=== PATIENT | male | born 1955 | race Caucasian/White ===

== ENCOUNTER 2018-08-17 12:34 | Emergency (ER) | payer BC, OTHER ==
[~2018-08-17] VITALS: Ht 188 cm; Wt 117.9 kg
--- NOTE | 2018-08-17 14:52 | ED Lower Extremity ---
General Chief Complaint: Lower Extremity Stated Complaint: LEFT LEG PAIN Nursing Triage Note: pt arrived in ED POV with with c/o left leg/hip pain. a week ago pt fell trying to get in truck but didn't start having this pain for a couple days. Pt states that he has been to [facility] ED et seen his PCP but nothing has been done. PT states he can not walk on leg Nursing Sepsis Screen: No Definite Risk Source: patient, spouse Exam Limitations: no limitations History of Present Illness Date Seen by Provider: Aug 17, 2018 Time Seen by Provider: 14:37 Initial Comments Patient presents to ER by private conveyance with chief complaint that about 10 days ago he was getting out of his truck and fell down striking his right hip against the step board. About 3 or 4 days later he started expressing some pain in his right hip laterally radiating down to the level of the knee. He has no history of chronic back pain and some sciatica. He went to Dr. Parra any put him on a steroid shot and gave him some Percocet. 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 He has been using topical creams. A day later it was not feeling any better so he went to the ER [place] the toe and he might of had a blood clot so he went to the [facility] get an ultrasound done in the [facility] ER doctor did not think that he had a blood clot but told him he is having muscle skeletal pain and sciatica gave him some stronger Percocet 10 mg and put him on some prednisone and told him to follow-up Friday if it's not getting better. His called the litigation legal secretary or nurse for Dr. 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 The patient had an x-ray of his back lumbar spine and hip and knee and there were no fracture seen at [place]. Allergies and Home Medications Allergies Coded Allergies: aspirin (Verified Allergy, Unknown, angioedema, 08/17/18) Angioedema Patient Home Medication List Home Medication List Reviewed: Yes Review of Systems Constitutional: No chills, No fever EENTM: No ear discharge, No ear pain Respiratory: No cough, No phlegm Cardiovascular: No chest pain, No palpitations Gastrointestinal: No abdominal pain, No constipation, No diarrhea, No nausea Genitourinary: No discharge, No dysuria Musculoskeletal: see HPI, back pain, joint pain Past Loorjcj-Niibzt-Aijvbn Hx Patient Social History Alcohol Use: Denies Use Recreational Drug Use: No Recent Foreign Travel: No Contact w/Someone Who Travel: No Recent Infectious Disease Expo: No Physical Exam Vital Signs Vital Signs - First Documented 08/17/18 12:34 Temp 98.4 Pulse 55 Resp 18 B/P (MAP) 141/89 (106) Pulse Ox 95 O2 Delivery Room Air Capillary Refill : Less Than 3 Seconds Height, Weight, BMI Height: 6'2.00" Weight: 260lbs. oz. 117.724208ko; BMI Method:Stated General Appearance: WD/WN, mild distress HEENT: PERRL/EOMI, pharynx normal Neck: non-tender, full range of motion, supple, normal inspection Cardiovascular: normal peripheral pulses, regular rate, rhythm, no edema Respiratory: lungs clear, no respiratory distress, no accessory muscle use Back: normal inspection, no vertebral tenderness (midline), other (no tenderness over the bilateral L5-S1 facet joints) Hips: right hip non-tender, right hip normal inspection; bilateral hip normal range of motion; right hip no evidence of injury; left hip bone tenderness ( tenderness over the greater trochanter), left hip pain, left hip soft tissue tenderness (down the leg to above the knee laterally) Knees: bilateral knee non-tender, bilateral knee normal inspection, bilateral knee normal range of motion, bilateral knee no evidence of injury Neurologic/Tendon: normal sensation, normal motor functions, normal tendon functions, responds to pain, no evidence tendon injury Neurologic/Psychiatric: no motor/sensory deficits, alert, normal mood/affect, oriented x 3 Skin: normal color, warm/dry Progress/Results/Core Measures Results/Orders My Orders Orders - ORTIZ ARGUETA Fentanyl Injection (Sublimaze Injection (08/17/18 16:50) Fentanyl Injection (Sublimaze Injection (08/17/18 17:00) Medications Given in ED Current Medications Medications Dose Ordered Sig/Robb Route Start Time Stop Time Status Last Admin Dose Admin Fentanyl Citrate 75 mcg ONCE ONCE IM 08/17/18 17:00 08/17/18 17:01 DC 08/17/18 16:54 75 MCG Vital Signs/I&O 08/17/18 12:34 Temp 98.4 Pulse 55 Resp 18 B/P (MAP) 141/89 (106) Pulse Ox 95 O2 Delivery Room Air Blood Pressure Mean: 106 Progress Progress Note #1: Time: 17:51 Progress Note The patient has no red flag signs of in, some bowel, urinary hesitancy, saddle anesthesia, numbness weakness. He has full range of motion despite some pain in that left hip. His pain seems to be over the left ureter trochanter more consistent with a bursitis probably traumatic from his fall. Since she can't tolerate NSAIDs his best bet is going to be topical creams, Tylenol, opiates and continue the steroids. His insist that we talk to the surgeon so we will call orthopedic surgery and give him some follow-up. He also recommended that he talk to his primary care doctor about physical therapy. Reviewed the x-ray report from the [facility] showing that he had no acute fractures or subluxation in his lumbar spine. Fentanyl 75 g IM given. Progress Note #2: Time: 18:08 Progress Note The patient says that his pain is greatly improved with the 75 g of fentanyl. We've offered him another shot and he declined. We will get him set up to call for outpatient follow-up with Dr. Dougherty tomorrow. We'll send him home some Percocets. He already has diclofenac gel. Consults : Consulting Physician: LANRE DOUGHERTY MD Consults Notes Discussed case with Dr. DOUGHERTY and he agrees with outpatient follow-up. Departure Impression Primary Impression: Bursitis Qualified Codes: M70.62 - Trochanteric bursitis, left hip Additional Impressions: Lumbago with sciatica, left side Qualified Codes: M54.42 - Lumbago with sciatica, left side Fall Qualified Codes: W19.XXXS - Unspecified fall, sequela Disposition: 01 HOME, SELF-CARE Condition: Stable Departure-Patient Inst. Decision time for Depature: 18:08 Referrals: LANRE DOUGHERTY MD Patient Instructions: Bursitis (DC) Add. Discharge Instructions: Use heat, back brace, muscle rubs, diclofenac gel, Tylenol less than 3000 mg a day, Percocet 1-2 tablets every 6 hours as needed for pain. Every day to take Percocet you should also take at least one dose of MiraLAX. You can also use the Dulcolax. Drink plenty of fluids. Stretch your back out per the exercises and tomorrow call Dr. DOUGHERTY, orthopedic surgery and request an appointment. If you begin to have numbness, weakness, inability to control your bowels or bladder then you should return to the nearest ER. Or All discharge instructions reviewed with patient and/or family. Voiced understanding. Scripts Oxycodone HCl/Acetaminophen (Percocet 5-325 mg Tablet) 1 Each Tablet 1-2 EACH PO Q6H PRN for PAIN-MODERATE MDD 6 for 7 Days, #20 TAB 0 Refills Prov: ORTIZ ARGUETA 08/17/18 ORTIZ ARGUETA Aug 17, 2018 14:52
--- NOTE | 2018-08-17 15:45 | NUR ---
report given to Yen BURCIAGA
[2018-08-17] MEDS ORDERED: fentaNYL INJECTION 100 MCG/2 ML AMP ONE (16:50)
[2018-08-17] MEDS ORDERED: fentaNYL INJECTION 100 MCG/2 ML AMP IM ONE (17:00)
[2018-08-17] MEDS ORDERED: OXYC1TAB87 PO (18:10)
[2018-08-17 18:15] VITALS: BP 141/89
== END 2018-08-17 18:16 | disposition home or self-care (01) ==
LOC: ER 12:36
DX: M70.62 Trochanteric bursitis, left hip (principal); M54.42 Lumbago with sciatica, left side; Z88.6 Allergy status to analgesic agent; V58.4XXA Person boarding or alighting a pick-up truck or van injured in noncollision transport accident, initial encounter; W22.09XA Striking against other stationary object, initial encounter

== ENCOUNTER → 2018-12-10 | Outpatient (CLI) | payer BC, MEDICARE ==
[~2018-12-10] MED LIST: OXYC1TAB87 PO
[2018-12-10 15:34] LABS: HEMATOCRIT 48 % (40-54); LYMPHOCYTES % (AUTO) 11 % (12-44); MEAN CORPUSCULAR HEMOGLOBIN 27 PG (25-34); MEAN CORPUSCULAR HGB CONC 32 G/DL (32-36); MEAN CORPUSCULAR VOLUME 86 FL (80-99); NEUTROPHILS % (AUTO) 58 % (42-75); PLATELET COUNT 92 10^3/uL (130-400); RED CELL DISTRIBUTION WIDTH 19.2 % (10.0-14.5); WHITE BLOOD COUNT 34.2 10^3/uL (4.3-11.0)
[2018-12-10 15:35] LABS: BASOPHILS # (AUTO) 1.4 10^3/uL (0.0-0.1); BASOPHILS % (AUTO) 4 % (0-10); EOSINOPHILS # (AUTO) 0.7 10^3/uL (0.0-0.3); EOSINOPHILS % (AUTO) 2 % (0-10); LYMPHOCYTES # (AUTO) 3.8 X 10^3 (1.0-4.0); MONOCYTES # (AUTO) 2.9 X 10^3 (0.0-1.0); MONOCYTES % (AUTO) 9 % (0-12); NEUTROPHILS # (AUTO) 19.8 X 10^3 (1.8-7.8)
[2018-12-10 15:36] LABS: BAND NEUTROPHILS 13 %; BASOPHILS % (MANUAL) 0 %; EOSINOPHILS % (MANUAL) 4 %; LYMPHOCYTES % (MANUAL) 16 %; METAMYELOCYTES % 9 %; MONOCYTES % (MANUAL) 4 %; MYELOCYTES % 1 %; NEUTROPHILS % (MANUAL) 53 %
== END ==
LOC: LAB FS 13:14
PROVIDERS: ATTEND Internal Medicine Hematology & Oncology
DX: D45 Polycythemia vera (principal)
CPT/HCPCS: 36415; 85007; 85027

== ENCOUNTER → 2018-12-31 | Outpatient (CLI) | payer BC, MEDICARE ==
[2018-12-31 14:44] LABS: HEMATOCRIT 47 % (40-54); HEMOGLOBIN 14.9 G/DL (13.3-17.7); MEAN CORPUSCULAR HEMOGLOBIN 27 PG (25-34); MEAN CORPUSCULAR HGB CONC 32 G/DL (32-36); MEAN CORPUSCULAR VOLUME 85 FL (80-99); PLATELET COUNT 59 10^3/uL (130-400); RED CELL DISTRIBUTION WIDTH 18.6 % (10.0-14.5); WHITE BLOOD COUNT 24.1 10^3/uL (4.3-11.0)
[2018-12-31 14:45] LABS: BAND NEUTROPHILS 3 %; EOSINOPHILS % (MANUAL) 1 %; LYMPHOCYTES % (MANUAL) 16 %; MONOCYTES % (MANUAL) 9 %; NEUTROPHILS % (MANUAL) 71 %; RBC MORPH NORMAL
== END ==
LOC: LAB 10:43
PROVIDERS: ATTEND Internal Medicine Hematology & Oncology
DX: D45 Polycythemia vera (principal)
CPT/HCPCS: 36415; 85007; 85027

== ENCOUNTER → 2019-01-26 | Outpatient (CLI) | payer BC, MEDICARE ==
[2019-01-26 12:50] LABS: HEMOGLOBIN 14.8 G/DL (13.3-17.7); MEAN CORPUSCULAR HEMOGLOBIN 28 PG (25-34); WHITE BLOOD COUNT 28.9 10^3/uL (4.3-11.0)
[2019-01-26 12:53] LABS: HEMATOCRIT 46 % (40-54)
[2019-01-26 12:54] LABS: BASOPHILS % (AUTO) 4 % (0-10); EOSINOPHILS % (AUTO) 2 % (0-10); LYMPHOCYTES % (AUTO) 14 % (12-44); MEAN CORPUSCULAR HGB CONC 32 G/DL (32-36); MEAN CORPUSCULAR VOLUME 87 FL (80-99); MONOCYTES % (AUTO) 10 % (0-12); NEUTROPHILS % (AUTO) 55 % (42-75); PLATELET COUNT 60 10^3/uL (130-400); RED CELL DISTRIBUTION WIDTH 18.4 % (10.0-14.5)
[2019-01-26 12:55] LABS: EOSINOPHILS # (AUTO) 0.6 10^3/uL (0.0-0.3); NEUTROPHILS # (AUTO) 15.9 X 10^3 (1.8-7.8)
== END ==
LOC: LAB FS 11:55
PROVIDERS: ATTEND Internal Medicine Hematology & Oncology
DX: D45 Polycythemia vera (principal)
CPT/HCPCS: 36415; 85025

== ENCOUNTER → 2019-02-24 | Outpatient (CLI) | payer BC, MEDICARE ==
[2019-02-24 14:50] LABS: HEMATOCRIT 45 % (40-54); HEMOGLOBIN 14.4 G/DL (13.3-17.7); MEAN CORPUSCULAR HEMOGLOBIN 28 PG (25-34); MEAN CORPUSCULAR HGB CONC 32 G/DL (32-36); MEAN CORPUSCULAR VOLUME 89 FL (80-99); PLATELET COUNT 80 10^3/uL (130-400); RED CELL DISTRIBUTION WIDTH 19.3 % (10.0-14.5); WHITE BLOOD COUNT 20.7 10^3/uL (4.3-11.0)
[2019-02-24 16:27] LABS: BAND NEUTROPHILS 31 %; BASOPHILS % (MANUAL) 2 %; EOSINOPHILS % (MANUAL) 2 %; LYMPHOCYTES % (MANUAL) 25 %; METAMYELOCYTES % 2 %; MONOCYTES % (MANUAL) 6 %; MYELOCYTES % 6 %; NEUTROPHILS % (MANUAL) 26 %; NUCLEATED RED BLOOD CELLS 2
[2019-02-24 16:28] LABS: PLATELET ESTIMATE DECREASED; RBC MORPH NORMAL
== END ==
LOC: LAB FS 14:16
PROVIDERS: ATTEND Internal Medicine Hematology & Oncology
DX: D72.829 Elevated white blood cell count, unspecified (principal); D45 Polycythemia vera
CPT/HCPCS: 36415; 85007; 85027

== ENCOUNTER → 2019-03-31 | Outpatient (CLI) | payer BC, MEDICARE ==
[2019-03-31 12:03] LABS: HEMATOCRIT 48 % (40-54); HEMOGLOBIN 15.6 G/DL (13.3-17.7); MEAN CORPUSCULAR HEMOGLOBIN 29 PG (25-34); MEAN CORPUSCULAR HGB CONC 33 G/DL (32-36); MEAN CORPUSCULAR VOLUME 89 FL (80-99); PLATELET COUNT 75 10^3/uL (130-400); RED CELL DISTRIBUTION WIDTH 16.8 % (10.0-14.5); WHITE BLOOD COUNT 24.7 10^3/uL (4.3-11.0)
[2019-03-31 12:04] LABS: BASOPHILS # (AUTO) 0.9 10^3/uL (0.0-0.1); BASOPHILS % (AUTO) 4 % (0-10); EOSINOPHILS # (AUTO) 0.4 10^3/uL (0.0-0.3); EOSINOPHILS % (AUTO) 2 % (0-10); LYMPHOCYTES % (AUTO) 12 % (12-44); MONOCYTES # (AUTO) 2.3 X 10^3 (0.0-1.0); MONOCYTES % (AUTO) 10 % (0-12); NEUTROPHILS # (AUTO) 14.4 X 10^3 (1.8-7.8); NEUTROPHILS % (AUTO) 58 % (42-75)
[2019-03-31 12:23] LABS: ALANINE AMINOTRANSFERASE 54 U/L (0-55); ALBUMIN 4.7 GM/DL (3.2-4.5); ALKALINE PHOSPHATASE 70 U/L (40-136); BILIRUBIN,TOTAL 0.8 MG/DL (0.1-1.0); BUN/CREATININE RATIO 18; CALCIUM 9.2 MG/DL (8.5-10.1); CARBON DIOXIDE 24 MMOL/L (21-32); CHLORIDE 102 MMOL/L (98-107); CREATININE SERUM 1.11 MG/DL (0.60-1.30); GFR ESTIMATED > 60; GLUCOSE 118 MG/DL (70-105); POTASSIUM 4.1 MMOL/L (3.6-5.0); SODIUM 142 MMOL/L (135-145); TOTAL PROTEIN 7.2 GM/DL (6.4-8.2)
[2019-03-31 12:28] LABS: ANISOCYTOSIS SLIGHT; BAND NEUTROPHILS 22 %; BASOPHILS % (MANUAL) 0 %; EOSINOPHILS % (MANUAL) 3 %; LYMPHOCYTES % (MANUAL) 18 %; METAMYELOCYTES % 4 %; MONOCYTES % (MANUAL) 7 %; NEUTROPHILS % (MANUAL) 46 %
== END ==
LOC: LAB FS 11:38
PROVIDERS: ATTEND Family Medicine
DX: D72.829 Elevated white blood cell count, unspecified (principal); D45 Polycythemia vera
CPT/HCPCS: 36415; 80053; 85007; 85027

== ENCOUNTER → 2019-06-10 | Outpatient (CLI) | payer BC, MEDICARE ==
[2019-06-10 15:18] LABS: HEMATOCRIT 50 % (40-54); HEMOGLOBIN 15.5 G/DL (13.3-17.7); MEAN CORPUSCULAR HEMOGLOBIN 26 PG (25-34); MEAN CORPUSCULAR HGB CONC 31 G/DL (32-36); MEAN CORPUSCULAR VOLUME 85 FL (80-99); PLATELET COUNT 237 10^3/uL (130-400); RED CELL DISTRIBUTION WIDTH 19.3 % (10.0-14.5)
[2019-06-10 15:20] LABS: BASOPHILS % (AUTO) 4 % (0-10); EOSINOPHILS % (AUTO) 2 % (0-10); LYMPHOCYTES % (AUTO) 7 % (12-44); MONOCYTES % (AUTO) 8 % (0-12); NEUTROPHILS % (AUTO) 67 % (42-75)
[2019-06-10 15:21] LABS: BASOPHILS # (AUTO) 1.5 10^3/uL (0.0-0.1); EOSINOPHILS # (AUTO) 0.8 10^3/uL (0.0-0.3); LYMPHOCYTES # (AUTO) 3.1 X 10^3 (1.0-4.0); MONOCYTES # (AUTO) 3.5 X 10^3 (0.0-1.0); NEUTROPHILS # (AUTO) 27.8 X 10^3 (1.8-7.8)
[2019-06-10 15:22] LABS: WHITE BLOOD COUNT 41.8 10^3/uL (4.3-11.0)
== END ==
LOC: LAB FS 12:36
PROVIDERS: ATTEND Internal Medicine Hematology & Oncology
DX: D45 Polycythemia vera (principal)
CPT/HCPCS: 36415; 85025

== ENCOUNTER 2019-07-08 11:04 | Outpatient (RCR) | payer BC, MEDICARE ==
[2019-05-05 12:37] LABS: HEMATOCRIT 47 % (40-54); HEMOGLOBIN 15.2 G/DL (13.3-17.7); MEAN CORPUSCULAR HEMOGLOBIN 28 PG (25-34); MEAN CORPUSCULAR HGB CONC 32 G/DL (32-36); MEAN CORPUSCULAR VOLUME 88 FL (80-99); PLATELET COUNT 50 10^3/uL (130-400); RED CELL DISTRIBUTION WIDTH 16.1 % (10.0-14.5); WHITE BLOOD COUNT 19.7 10^3/uL (4.3-11.0)
[2019-05-05 12:38] LABS: BASOPHILS # (AUTO) 0.6 10^3/uL (0.0-0.1); BASOPHILS % (AUTO) 3 % (0-10); EOSINOPHILS # (AUTO) 0.3 10^3/uL (0.0-0.3); EOSINOPHILS % (AUTO) 2 % (0-10); LYMPHOCYTES % (AUTO) 10 % (12-44); MONOCYTES # (AUTO) 1.3 X 10^3 (0.0-1.0); MONOCYTES % (AUTO) 6 % (0-12); NEUTROPHILS # (AUTO) 12.8 X 10^3 (1.8-7.8); NEUTROPHILS % (AUTO) 65 % (42-75)
[2019-05-05 13:01] LABS: ANISOCYTOSIS SLIGHT; BAND NEUTROPHILS 35 %; BASOPHILS % (MANUAL) 1 %; EOSINOPHILS % (MANUAL) 0 %; LYMPHOCYTES % (MANUAL) 17 %; METAMYELOCYTES % 2 %; MONOCYTES % (MANUAL) 9 %; NEUTROPHILS % (MANUAL) 36 %; POLYCHROMASIA SLIGHT
[2019-06-02 14:02] LABS: HEMATOCRIT 49 % (40-54); HEMOGLOBIN 15.3 G/DL (13.3-17.7); MEAN CORPUSCULAR HEMOGLOBIN 27 PG (25-34); MEAN CORPUSCULAR HGB CONC 31 G/DL (32-36); MEAN CORPUSCULAR VOLUME 87 FL (80-99); WHITE BLOOD COUNT 49.3 10^3/uL (4.3-11.0)
[2019-06-02 14:03] LABS: BASOPHILS % (AUTO) 3 % (0-10); EOSINOPHILS # (AUTO) 1.1 10^3/uL (0.0-0.3); EOSINOPHILS % (AUTO) 2 % (0-10); LYMPHOCYTES # (AUTO) 3.3 X 10^3 (1.0-4.0); LYMPHOCYTES % (AUTO) 7 % (12-44); MONOCYTES # (AUTO) 2.3 X 10^3 (0.0-1.0); MONOCYTES % (AUTO) 5 % (0-12); NEUTROPHILS # (AUTO) 34.2 X 10^3 (1.8-7.8); NEUTROPHILS % (AUTO) 69 % (42-75); PLATELET COUNT 189 10^3/uL (130-400); RED CELL DISTRIBUTION WIDTH 17.6 % (10.0-14.5)
[2019-06-02 14:04] LABS: BASOPHILS # (AUTO) 1.2 10^3/uL (0.0-0.1)
[2019-06-02 15:54] LABS: BAND NEUTROPHILS 19 %; BASOPHILS % (MANUAL) 2 %; EOSINOPHILS % (MANUAL) 2 %; LYMPHOCYTES % (MANUAL) 5 %; METAMYELOCYTES % 10 %; MONOCYTES % (MANUAL) 6 %; MYELOCYTES % 4 %; NEUTROPHILS % (MANUAL) 49 %
[2019-06-02 15:55] LABS: ANISOCYTOSIS SLIGHT; BLAST CELLS 2 %; NUCLEATED RED BLOOD CELLS 1; POLYCHROMASIA SLIGHT; PROMYELOCYTES % 1 %
[2019-07-08 11:27] LABS: WHITE BLOOD COUNT 43.1 10^3/uL (4.3-11.0)
[2019-07-08 11:28] LABS: BASOPHILS # (AUTO) 1.3 10^3/uL (0.0-0.1); BASOPHILS % (AUTO) 3 % (0-10); EOSINOPHILS # (AUTO) 0.7 10^3/uL (0.0-0.3); EOSINOPHILS % (AUTO) 2 % (0-10); HEMATOCRIT 50 % (40-54); HEMOGLOBIN 15.1 G/DL (13.3-17.7); LYMPHOCYTES # (AUTO) 3.6 X 10^3 (1.0-4.0); LYMPHOCYTES % (AUTO) 8 % (12-44); MEAN CORPUSCULAR HEMOGLOBIN 26 PG (25-34); MEAN CORPUSCULAR HGB CONC 31 G/DL (32-36); MEAN CORPUSCULAR VOLUME 84 FL (80-99); MONOCYTES # (AUTO) 3.8 X 10^3 (0.0-1.0); MONOCYTES % (AUTO) 9 % (0-12); NEUTROPHILS # (AUTO) 28.9 X 10^3 (1.8-7.8); NEUTROPHILS % (AUTO) 67 % (42-75); PLATELET COUNT 328 10^3/uL (130-400); RED CELL DISTRIBUTION WIDTH 21.7 % (10.0-14.5)
[2019-07-08 11:40] LABS: BAND NEUTROPHILS 20 %; BASOPHILS % (MANUAL) 0 %; EOSINOPHILS % (MANUAL) 3 %; LYMPHOCYTES % (MANUAL) 11 %; METAMYELOCYTES % 3 %; MONOCYTES % (MANUAL) 4 %; NEUTROPHILS % (MANUAL) 59 %
[2019-07-08 11:41] LABS: ANISOCYTOSIS SLIGHT; POIKILOCYTOSIS SLIGHT
== END 2019-08-03 | disposition home or self-care (01) ==
LOC: LAB FS 11:04
PROVIDERS: ATTEND Internal Medicine Hematology & Oncology
DX: D45 Polycythemia vera (principal)
CPT/HCPCS: 36415; 85007; 85027

== ENCOUNTER → 2019-07-08 | Outpatient (CLI) | payer BC, MEDICARE ==
[2019-07-08 11:49] LABS: POTASSIUM 4.3 MMOL/L (3.6-5.0); SODIUM 139 MMOL/L (135-145)
[2019-07-08 11:50] LABS: ALANINE AMINOTRANSFERASE 61 U/L (0-55); ALBUMIN 4.8 GM/DL (3.2-4.5); ALKALINE PHOSPHATASE 105 U/L (40-136); BILIRUBIN,TOTAL 0.9 MG/DL (0.1-1.0); BUN/CREATININE RATIO 19; CALCIUM 9.4 MG/DL (8.5-10.1); CARBON DIOXIDE 27 MMOL/L (21-32); CHLORIDE 102 MMOL/L (98-107); CREATININE SERUM 1.09 MG/DL (0.60-1.30); GFR ESTIMATED > 60; GLUCOSE 116 MG/DL (70-105); TOTAL PROTEIN 7.3 GM/DL (6.4-8.2)
[2019-07-08 14:54] LABS: CHOLESTEROL 186 MG/DL (< 200); HDL CHOLESTEROL 37 MG/DL (40-60); TRIGLYCERIDES 237 MG/DL (<150); VLDL CHOLESTEROL 47 MG/DL (5-40)
== END ==
LOC: LAB FS 11:02
PROVIDERS: ATTEND Family Medicine
DX: I10 Essential (primary) hypertension (principal)
CPT/HCPCS: 36415; 80053; 80061

== ENCOUNTER → 2019-09-03 | Outpatient (CLI) | payer BC, MEDICARE ==
[2019-09-03 12:41] LABS: HEMATOCRIT 47 % (40-54); HEMOGLOBIN 15.2 G/DL (13.3-17.7); LYMPHOCYTES % (AUTO) 13 % (12-44); MEAN CORPUSCULAR HEMOGLOBIN 28 PG (25-34); MEAN CORPUSCULAR HGB CONC 32 G/DL (32-36); MEAN CORPUSCULAR VOLUME 86 FL (80-99); MONOCYTES % (AUTO) 7 % (0-12); NEUTROPHILS % (AUTO) 64 % (42-75); PLATELET COUNT 147 10^3/uL (130-400); RED CELL DISTRIBUTION WIDTH 22.2 % (10.0-14.5); WHITE BLOOD COUNT 27.7 10^3/uL (4.3-11.0)
[2019-09-03 12:42] LABS: BAND NEUTROPHILS 24 %; BASOPHILS # (AUTO) 0.8 10^3/uL (0.0-0.1); BASOPHILS % (AUTO) 3 % (0-10); BASOPHILS % (MANUAL) 3 %; EOSINOPHILS # (AUTO) 0.4 10^3/uL (0.0-0.3); EOSINOPHILS % (AUTO) 1 % (0-10); EOSINOPHILS % (MANUAL) 1 %; LYMPHOCYTES # (AUTO) 3.6 X 10^3 (1.0-4.0); LYMPHOCYTES % (MANUAL) 17 %; METAMYELOCYTES % 4 %; MONOCYTES # (AUTO) 1.9 X 10^3 (0.0-1.0); MONOCYTES % (MANUAL) 5 %; MYELOCYTES % 1 %; NEUTROPHILS # (AUTO) 17.8 X 10^3 (1.8-7.8); NEUTROPHILS % (MANUAL) 45 %; NUCLEATED RED BLOOD CELLS 1
== END ==
LOC: LAB FS 09:46
PROVIDERS: ATTEND Physician Assistant
DX: Z51.81 Encounter for therapeutic drug level monitoring (principal); Z79.899 Other long term (current) drug therapy
CPT/HCPCS: 36415; 85007; 85027

== ENCOUNTER → 2019-09-20 | Outpatient (CLI) | payer MEDICARE, BC ==
--- NOTE | 2019-09-20 14:28 | Diagnostic Imaging Report ---
INDICATION: Abdominal distention and diarrhea. FINDINGS: Heart size is normal. Lung bases are clear. Bowel gas pattern is nonspecific. No free air. There are no abnormal abdominal calcifications. IMPRESSION: No acute cardiopulmonary abnormality. Nonspecific bowel gas pattern. Dictated by: Dictated on workstation # [id number]
== END ==
LOC: RAD FS 13:21
PROVIDERS: ATTEND Emergency Medicine
DX: R14.0 Abdominal distension (gaseous) (principal); R11.10 Vomiting, unspecified; R19.7 Diarrhea, unspecified
CPT/HCPCS: 74022

== ENCOUNTER 2019-10-06 10:47 | Outpatient (RCR) | payer BC, MEDICARE ==
[2019-08-05 12:23] LABS: BASOPHILS # (AUTO) 0.7 10^3/uL (0.0-0.1); BASOPHILS % (AUTO) 3 % (0-10); EOSINOPHILS # (AUTO) 0.4 10^3/uL (0.0-0.3); EOSINOPHILS % (AUTO) 2 % (0-10); HEMATOCRIT 46 % (40-54); HEMOGLOBIN 14.6 G/DL (13.3-17.7); LYMPHOCYTES # (AUTO) 3.9 X 10^3 (1.0-4.0); LYMPHOCYTES % (AUTO) 15 % (12-44); MEAN CORPUSCULAR HEMOGLOBIN 27 PG (25-34); MEAN CORPUSCULAR HGB CONC 32 G/DL (32-36); MEAN CORPUSCULAR VOLUME 84 FL (80-99); MONOCYTES % (AUTO) 8 % (0-12); NEUTROPHILS # (AUTO) 16.1 X 10^3 (1.8-7.8); NEUTROPHILS % (AUTO) 62 % (42-75); PLATELET COUNT 138 10^3/uL (130-400); RED CELL DISTRIBUTION WIDTH 22.3 % (10.0-14.5); WHITE BLOOD COUNT 25.9 10^3/uL (4.3-11.0)
[2019-09-03 11:37] LABS: CARBON DIOXIDE 25 MMOL/L (21-32); CHLORIDE 103 MMOL/L (98-107); POTASSIUM 4.3 MMOL/L (3.6-5.0); SODIUM 141 MMOL/L (135-145)
[2019-09-03 11:38] LABS: ALANINE AMINOTRANSFERASE 71 U/L (0-55); ALBUMIN 4.8 GM/DL (3.2-4.5); ALKALINE PHOSPHATASE 62 U/L (40-136); BILIRUBIN,TOTAL 0.9 MG/DL (0.1-1.0); BUN/CREATININE RATIO 14; CALCIUM 9.5 MG/DL (8.5-10.1); CREATININE SERUM 1.13 MG/DL (0.60-1.30); GFR ESTIMATED > 60; GLUCOSE 123 MG/DL (70-105); TOTAL PROTEIN 7.3 GM/DL (6.4-8.2)
[2019-10-06 11:18] LABS: HEMATOCRIT 48 % (40-54); HEMOGLOBIN 14.9 G/DL (13.3-17.7); MEAN CORPUSCULAR HEMOGLOBIN 27 PG (25-34); MEAN CORPUSCULAR HGB CONC 31 G/DL (32-36); MEAN CORPUSCULAR VOLUME 88 FL (80-99); WHITE BLOOD COUNT 23.3 10^3/uL (4.3-11.0)
[2019-10-06 11:19] LABS: BASOPHILS # (AUTO) 0.7 10^3/uL (0.0-0.1); BASOPHILS % (AUTO) 3 % (0-10); EOSINOPHILS # (AUTO) 0.2 10^3/uL (0.0-0.3); EOSINOPHILS % (AUTO) 1 % (0-10); LYMPHOCYTES # (AUTO) 2.3 X 10^3 (1.0-4.0); LYMPHOCYTES % (AUTO) 10 % (12-44); MONOCYTES # (AUTO) 1.7 X 10^3 (0.0-1.0); MONOCYTES % (AUTO) 7 % (0-12); NEUTROPHILS # (AUTO) 16.3 X 10^3 (1.8-7.8); NEUTROPHILS % (AUTO) 70 % (42-75); PLATELET COUNT 188 10^3/uL (130-400); RED CELL DISTRIBUTION WIDTH 19.7 % (10.0-14.5)
[2019-10-06 11:32] LABS: ALANINE AMINOTRANSFERASE 82 U/L (0-55); ALKALINE PHOSPHATASE 77 U/L (40-136); BILIRUBIN,TOTAL 0.9 MG/DL (0.1-1.0); BUN/CREATININE RATIO 11; CALCIUM 9.6 MG/DL (8.5-10.1); CARBON DIOXIDE 28 MMOL/L (21-32); CHLORIDE 104 MMOL/L (98-107); CREATININE SERUM 1.22 MG/DL (0.60-1.30); GFR ESTIMATED 60; GLUCOSE 90 MG/DL (70-105); POTASSIUM 4.3 MMOL/L (3.6-5.0); SODIUM 142 MMOL/L (135-145); TOTAL PROTEIN 7.4 GM/DL (6.4-8.2)
[2019-10-06 12:06] LABS: BAND NEUTROPHILS 22 %; EOSINOPHILS % (MANUAL) 1 %; LYMPHOCYTES % (MANUAL) 19 %; MONOCYTES % (MANUAL) 4 %; NEUTROPHILS % (MANUAL) 55 %
[2019-10-06 12:07] LABS: ANISOCYTOSIS SLIGHT; BASOPHILS % (MANUAL) 1 %
== END 2019-11-03 | disposition home or self-care (01) ==
LOC: LAB FS 10:47
PROVIDERS: ATTEND Internal Medicine Hematology & Oncology
DX: D45 Polycythemia vera (principal)
CPT/HCPCS: 36415; 80053; 85007; 85025; 85027

== ENCOUNTER → 2020-08-08 | Outpatient (CLI) | payer MEDICARE, BC ==
--- NOTE | 2020-08-08 16:30 | Diagnostic Imaging Report ---
EXAMINATION: Chest 2 view HISTORY: Shortness of breath. COMPARISON: Acute abdominal series 09/20/2019. FINDINGS: Heart size and pulmonary vasculature are normal. Patchy interstitial and airspace opacities throughout both lungs, greatest within the left lung. Calcifications of the aorta. No pleural effusion or pneumothorax. Degenerative changes of the thoracic spine. Osseous structures are otherwise intact. IMPRESSION: 1. Patchy interstitial and airspace opacities throughout both lungs, left greater than right, compatible with history of COVID-19 and pneumonia. Dictated by: Dictated on workstation # [id number]
== END ==
LOC: RAD FS 13:58
PROVIDERS: ATTEND Emergency Medicine
DX: R91.8 Other nonspecific abnormal finding of lung field (principal); U07.1 COVID-19; R09.3 Abnormal sputum
CPT/HCPCS: 71046

== ENCOUNTER → 2020-10-09 | Outpatient (CLI) | payer MEDICARE, BC ==
[~2020-10-09] MED LIST changes: +CATHETER FLUSH 10 ML SYR IV PRN; +HOLD METFORMIN - RECEIVED CONTRAST 20 ML VIAL IV SCH; +IOHEXOL 350 MG/ML 100 ML (OMNIPAQUE 350) VIAL IV ONE; +NS 100 ML (IVPB) BAG IV ONE
--- NOTE | 2020-10-09 11:07 | Diagnostic Imaging Report ---
EXAMINATION: CT Abdomen and Pelvis with intravenous contrast. TECHNIQUE: Multiple contiguous axial images were obtained through the abdomen and pelvis after the uneventful administration of intravenous contrast. All CT scans use one or more of the following dose optimizing techniques: automated exposure control, MA and/or KvP adjustment based on a patient size and exam type, or iterative reconstruction. HISTORY: Splenomegaly. COMPARISON: None available. FINDINGS: Lung bases: There are mild patchy groundglass opacities within the lung peripheries. Developing atelectasis or fibrosis in the lung periphery. There are a few scattered calcified granulomas. Solid organs: Diffuse hypoattenuation of the liver which can be seen with hepatic steatosis. The gallbladder is normal. There is no biliary ductal dilation. Pancreas is normal. The spleen is enlarged measuring up to 18.8 cm. Adrenal glands are normal. There is a nonobstructing 0.4 cm right renal calculus. No hydronephrosis. There is a mildly complex, minimally hypodense exophytic right renal lesion with suggestion of internal septations measuring up to 2.2 cm. (series 3 image 43). Bowel: A small hiatal hernia is present. No bowel obstruction. There is scattered colonic diverticulosis. The appendix is normal. Peritoneum: There is no intraperitoneal free fluid or free air. No suspicious lymphadenopathy. Vasculature: Calcification of the aorta without aneurysm. Musculoskeletal: Age-indeterminate mild compression deformity of the T11 vertebral body. Multilevel degenerative changes without suspicious osseous lesion. Pelvis: Calcifications within a mildly enlarged prostate gland. The urinary bladder is normal. IMPRESSION: 1. No acute abnormality in the abdomen or pelvis. 2. Findings suggestive of hepatic steatosis. 3. Splenomegaly. 4. A 2.1 cm mildly complex right renal cortical lesion. Recommend further evaluation with MRI of the kidneys with IV contrast. 5. Age-indeterminate compression deformity of the T11 vertebral body. 6. Colonic diverticulosis without findings of diverticulitis. 7. Nonobstructing 0.4 cm right renal calculus without hydronephrosis. 8. Patchy groundglass opacities and peripheral reticulation within the lungs could represent residual pneumonia versus developing fibrosis or atelectasis status post Covid infection. Dictated by: Dictated on workstation # [id number]
== END ==
LOC: RAD FS 09:58
PROVIDERS: ATTEND Emergency Medicine
DX: R16.1 Splenomegaly, not elsewhere classified (principal); N28.9 Disorder of kidney and ureter, unspecified; N20.0 Calculus of kidney; K57.30 Diverticulosis of large intestine without perforation or abscess without bleeding; M47.14 Other spondylosis with myelopathy, thoracic region
CPT/HCPCS: 74177

== ENCOUNTER → 2021-05-18 | Outpatient (CLI) | payer MEDICARE, BC ==
[~2021-05-18] MED LIST changes: -CATHETER FLUSH 10 ML SYR IV PRN; -HOLD METFORMIN - RECEIVED CONTRAST 20 ML VIAL IV SCH; -IOHEXOL 350 MG/ML 100 ML (OMNIPAQUE 350) VIAL IV ONE; -NS 100 ML (IVPB) BAG IV ONE
--- NOTE | 2021-05-18 15:40 | Diagnostic Imaging Report ---
INDICATION: Pain in the right shoulder. TIME OF EXAM: 1:22 PM. 3 views of the right shoulder were obtained. The humeral and acromioclavicular alignment are normal. Acromiohumeral space is normal. No fracture or dislocation is identified. IMPRESSION: No acute bony abnormality is detected. Dictated by: Dictated on workstation # [id number]
--- NOTE | 2021-05-18 16:18 | Diagnostic Imaging Report ---
INDICATION: Elbow pain COMPARISON: None available. TECHNIQUE: 3 radiographs of the right elbow dated 05/18/2021 FINDINGS: No acute fracture or dislocation. No destructive osseous process. Mild degenerative changes about the elbow are noted with associated mild osteophyte formation. Calcifications are identified immediately lateral to the lateral epicondyle. Prominent focal soft tissue swelling is noted overlying the olecranon. No significant joint effusion. IMPRESSION: Focal soft tissue swelling overlying the olecranon. This could relate to olecranon bursitis. Hematoma or abscess are additional considerations. No acute fracture with mild degenerative changes. Calcifications adjacent to the lateral epicondyle are felt to relate to sequelae of prior lateral epicondylitis. Dictated by: Dictated on workstation # [id number]
== END ==
LOC: RAD FS 13:00
PROVIDERS: ATTEND Nurse Practitioner Family
DX: M19.021 Primary osteoarthritis, right elbow (principal)
CPT/HCPCS: 73030; 73080

== ENCOUNTER → 2021-09-03 | Outpatient (CLI) | payer MEDICARE, BC ==
[~2021-09-03] MED LIST changes: +CATHETER FLUSH 10 ML SYR IV PRN; +HOLD METFORMIN - RECEIVED CONTRAST 20 ML VIAL IV SCH; +IOHEXOL 350 MG/ML 150 ML (OMNIPAQUE 350) VIAL IV ONE; +NS 100 ML (IVPB) BAG IV ONE
--- NOTE | 2021-09-03 11:32 | Diagnostic Imaging Report ---
EXAMINATION: CT CHEST. TECHNIQUE: Multiple contiguous axial images were obtained through the chest without the use of intravenous contrast. All CT scans use one or more of the following dose optimizing techniques: automated exposure control, MA and/or KvP adjustment based on a patient size and exam type, or iterative reconstruction. INDICATION: Pulmonary infiltrate, abnormal lungs on recent CT. Exophytic renal lesion. COMPARISON: CT abdomen/pelvis of 09/03/2021. FINDINGS: Lungs and airway: No nodule or debris within the trachea. Curvilinear subpleural lines are present in the bilateral mid lungs which were present on 10/09/2020. There are some faint groundglass opacities also scattered throughout the upper lobes. Mild traction bronchiectasis is also noted within the lingula and right middle lobe. Scattered calcified pulmonary nodules, compatible with old granulomatous infection. No concerning pulmonary nodules. Pleura: No pleural effusion or pneumothorax. Heart and mediastinum: A 3.9 x 2.2 cm hypodense nodule is present in the right thyroid lobe. No supraclavicular or axillary lymphadenopathy. No mediastinal or hilar lymphadenopathy. Calcified hilar lymph nodes are compatible with old granulomatous infection. Normal caliber thoracic aorta. Moderate coronary artery calcifications are present. No pericardial effusion. Upper abdomen: The exophytic cyst in the upper pole of the right kidney was better evaluated on the CT abdomen/pelvis from earlier this same day. Musculoskeletal: No worrisome focal osseous lesions. IMPRESSION: 1. No metastatic disease in the chest. 2. Scattered groundglass attenuation and subpleural bands are likely due to sequelae of severe lung injury, likely from prior infection, such as Covid 19. 3. Right thyroid nodule is indeterminate. Consider thyroid ultrasound for further assessment. Dictated by: Dictated on workstation # [id number]
--- NOTE | 2021-09-03 11:47 | Diagnostic Imaging Report ---
EXAMINATION: CT abdomen and pelvis with intravenous contrast. TECHNIQUE: Multiple contiguous axial images were obtained through the abdomen and pelvis after the uneventful administration of intravenous contrast. All CT scans use one or more of the following dose optimizing techniques: automated exposure control, MA and/or KvP adjustment based on patient size and exam type or iterative reconstruction. HISTORY: Renal lesion COMPARISON: 10/09/2020 FINDINGS: Limited views of the lower thorax are unremarkable. Liver is mildly steatotic. No suspicious liver lesions are seen. There is no biliary ductal dilation. Gallbladder is normal. Pancreas is normal. Spleen is mildly enlarged. Adrenal glands are normal. There is a 2.5 x 1.9 cm intermediate attenuating right renal lesion which previously measured 2.3 x 1.9 cm. There is no hydronephrosis. Urinary bladder is normal. Bowel is normal in caliber without obstruction or inflammation. There is diverticulosis without diverticulitis. There is a fat-containing left inguinal hernia. No free fluid or air. No abdominal or pelvic lymphadenopathy. Aorta is normal in caliber without aneurysm. There are no suspicious osseus lesions. IMPRESSION: 1. Minimal increase in size of intermediate attenuating right renal lesion. This remains concerning for a renal neoplasm and a further followup with a pre and postcontrast CT or MRI is recommended to evaluate for solid enhancing components. Dictated by: Dictated on workstation # [id number]
== END ==
LOC: RAD FS 09:48
DX: N28.9 Disorder of kidney and ureter, unspecified (principal); R91.8 Other nonspecific abnormal finding of lung field
CPT/HCPCS: 71250; 74177

== ENCOUNTER → 2021-10-08 | Outpatient (CLI) | payer MEDICARE, BC ==
[~2021-10-08] VITALS: Ht 188 cm; Wt 127.0 kg
[~2021-10-08] MED LIST changes: -CATHETER FLUSH 10 ML SYR IV PRN; -HOLD METFORMIN - RECEIVED CONTRAST 20 ML VIAL IV SCH; -IOHEXOL 350 MG/ML 150 ML (OMNIPAQUE 350) VIAL IV ONE; +LIDOCAINE 1% INJ 20 ML VIAL INJ ONE; +LIDOCAINE 1% INJ 50 ML (XYLOCAINE) VIAL ONE; -NS 100 ML (IVPB) BAG IV ONE
--- NOTE | 2021-10-08 12:26 | Diagnostic Imaging Report ---
INDICATION: Right thyroid nodule. Patient presents for ultrasound guided fine needle aspiration and biopsy. DETAILS OF THE PROCEDURE: The patient was brought to the procedure room and placed on the table in the supine position. Ultrasound imaging of the right neck was performed to evaluate for an appropriate entry site. The right neck was then prepped and draped in the usual sterile fashion. A small amount of 1% lidocaine was utilized for local anesthesia. A total of 4 passes was made into the dominant mass in the right lobe of the thyroid utilizing 25-gauge needles and fine needle aspiration technique. A single pass was made with a Rotex needle and a Rotex biopsy was performed. The needles were removed and hemostasis was obtained. The patient tolerated the procedure well and left the Department in stable condition. IMPRESSION: Successful ultrasound-guided fine-needle aspiration and Rotex biopsy of the right lobe thyroid nodule. Pathology results are currently pending. Dictated by: Dictated on workstation # [id number]
== END ==
LOC: RAD 10:43
PROVIDERS: ATTEND Otolaryngology Otolaryngology/Facial Plastic Surgery
DX: E04.1 Nontoxic single thyroid nodule (principal)
CPT/HCPCS: 10005

== ENCOUNTER → 2021-12-06 | Outpatient (CLI) | payer MEDICARE, BC ==
[~2021-12-06] MED LIST changes: +CATHETER FLUSH 10 ML SYR IV PRN; +HOLD METFORMIN - RECEIVED CONTRAST 20 ML VIAL IV SCH; +IOHEXOL 350 MG/ML 100 ML (OMNIPAQUE 350) VIAL IV ONE; -LIDOCAINE 1% INJ 20 ML VIAL INJ ONE; -LIDOCAINE 1% INJ 50 ML (XYLOCAINE) VIAL ONE; +NS 100 ML (IVPB) BAG IV ONE
[2021-12-06 11:16] LABS: POTASSIUM 4.5 MMOL/L (3.6-5.0)
[2021-12-06 11:17] LABS: CALCIUM 9.6 MG/DL (8.5-10.1); CREATININE SERUM 1.13 MG/DL (0.60-1.30)
--- NOTE | 2021-12-06 13:15 | Diagnostic Imaging Report ---
EXAMINATION: CT abdomen and pelvis with and without intravenous contrast. TECHNIQUE: Precontrast acquisitions were acquired through the abdomen and pelvis. Multiple contiguous axial images were obtained through the abdomen and pelvis after the administration of intravenous contrast. All CT scans use one or more of the following dose optimizing techniques: automated exposure control, MA and/or KvP adjustment based on patient size and exam type or iterative reconstruction. HISTORY: Renal mass evaluation. COMPARISON: 09/03/2021 FINDINGS: Lung bases: Bibasilar dependent atelectasis. Solid organs: Diffuse hypoattenuation in the liver which can be seen with hepatic steatosis. No focal hepatic lesion is seen. The gallbladder is normal. There is no biliary ductal dilation. Pancreas is normal. Spleen is normal. Adrenal glands are normal. There is a complex 2.5 cm mildly hyperdense right renal exophytic lesion. There is no significant enhancement seen on postcontrast images. No suspicious enhancing renal lesion. No hydronephrosis. Bowel: The stomach and small bowel are normal without obstruction. There is scattered colonic diverticulosis. The appendix is normal. Peritoneum: There is no intraperitoneal free fluid or free air. No suspicious lymphadenopathy. Vasculature: Normal without aneurysm. Musculoskeletal: Degenerative changes of the spine without suspicious osseous lesion or acute compression fracture. Pelvis: The prostate gland is enlarged. There is mild diffuse bladder wall thickening. IMPRESSION: 1. A mildly complex nonenhancing 2.5 cm right renal exophytic lesion. Bosniak class II F. Recommend continued follow-up with MRI on subsequent imaging. 2. Hepatic steatosis. 3. Prostatomegaly with mild bladder wall thickening. Recommend correlation with urinalysis. Dictated by: Dictated on workstation # [id number]
== END ==
LOC: RAD FS 10:15
PROVIDERS: ATTEND Specialist
DX: N28.9 Disorder of kidney and ureter, unspecified (principal); K76.0 Fatty (change of) liver, not elsewhere classified; N40.0 Benign prostatic hyperplasia without lower urinary tract symptoms; I10 Essential (primary) hypertension; K82.9 Disease of gallbladder, unspecified
CPT/HCPCS: 36415; 74178; 80048; Q9967

== ENCOUNTER 2021-12-19 15:12 | Outpatient (RCR) | payer MEDICARE, BC ==
[~2021-12-19 15:12] MED LIST changes: -CATHETER FLUSH 10 ML SYR IV PRN; -HOLD METFORMIN - RECEIVED CONTRAST 20 ML VIAL IV SCH; -IOHEXOL 350 MG/ML 100 ML (OMNIPAQUE 350) VIAL IV ONE; -NS 100 ML (IVPB) BAG IV ONE
[2021-12-19 15:32] LABS: BASOPHILS # (AUTO) 0.1 10^3/uL (0.0-0.1); BASOPHILS % (AUTO) 1 % (0-10); EOSINOPHILS # (AUTO) 0.1 10^3/uL (0.0-0.3); EOSINOPHILS % (AUTO) 2 % (0-10); HEMATOCRIT 42 % (40-54); HEMOGLOBIN 13.9 g/dL (13.3-17.7); LYMPHOCYTES # (AUTO) 0.6 10^3/uL (1.0-4.0); LYMPHOCYTES % (AUTO) 10 % (12-44); MEAN CORPUSCULAR HEMOGLOBIN 30 pg (25-34); MEAN CORPUSCULAR HGB CONC 33 g/dL (32-36); MEAN CORPUSCULAR VOLUME 89 fL (80-99); MEAN PLATELET VOLUME 10.7 fL (9.0-12.2); MONOCYTES # (AUTO) 0.4 10^3/uL (0.0-1.0); MONOCYTES % (AUTO) 7 % (0-12); NEUTROPHILS # (AUTO) 4.8 10^3/uL (1.8-7.8); NEUTROPHILS % (AUTO) 78 % (42-75); PLATELET COUNT 120 10^3/uL (130-400); WHITE BLOOD COUNT 6.2 10^3/uL (4.3-11.0)
[2021-12-19 15:54] LABS: CREATININE SERUM 0.99 MG/DL (0.60-1.30); POTASSIUM 4.3 MMOL/L (3.6-5.0)
[2021-12-19 15:55] LABS: ALBUMIN 4.3 GM/DL (3.2-4.5); BILIRUBIN,TOTAL 1.4 MG/DL (0.1-1.0)
== END 2022-01-01 | disposition home or self-care (01) ==
LOC: LAB FS 15:12
PROVIDERS: ATTEND Internal Medicine Hematology & Oncology
DX: D45 Polycythemia vera (principal)
CPT/HCPCS: 36415; 80053; 85025

== ENCOUNTER → 2022-01-14 | Outpatient (CLI) | payer MEDICARE, BC ==
[2022-01-14 15:41] LABS: FREE T4 (FREE THYROXINE) 0.93 NG/DL (0.70-1.48)
== END ==
LOC: LAB FS 11:46
PROVIDERS: ATTEND Physician Assistant
DX: E07.9 Disorder of thyroid, unspecified (principal)
CPT/HCPCS: 36415; 84439; 84443

== ENCOUNTER → 2022-02-21 | Outpatient (CLI) | payer MEDICARE, BC ==
[2022-02-21 17:59] LABS: ALANINE AMINOTRANSFERASE 41 U/L (0-55); ALBUMIN 4.6 GM/DL (3.2-4.5); ALKALINE PHOSPHATASE 81 U/L (40-136); BILIRUBIN,TOTAL 0.8 MG/DL (0.1-1.0); BUN/CREATININE RATIO 15; CALCIUM 9.3 MG/DL (8.5-10.1); CARBON DIOXIDE 27 MMOL/L (21-32); CHLORIDE 103 MMOL/L (98-107); CREATININE SERUM 1.02 MG/DL (0.60-1.30); GFR ESTIMATED 80; GLUCOSE 96 MG/DL (70-105); POTASSIUM 4.1 MMOL/L (3.6-5.0); SODIUM 139 MMOL/L (135-145); TOTAL PROTEIN 7.1 GM/DL (6.4-8.2)
== END ==
LOC: LAB FS 15:21
PROVIDERS: ATTEND Internal Medicine
DX: C73 Malignant neoplasm of thyroid gland (principal)
CPT/HCPCS: 36415; 80053

== ENCOUNTER → 2022-02-21 | Outpatient (CLI) | payer MEDICARE, BC ==
[2022-02-21 16:52] LABS: BASOPHILS # (AUTO) 0.1 10^3/uL (0.0-0.1); BASOPHILS % (AUTO) 1 % (0-10); EOSINOPHILS # (AUTO) 0.1 10^3/uL (0.0-0.3); EOSINOPHILS % (AUTO) 1 % (0-10); HEMATOCRIT 44 % (40-54); HEMOGLOBIN 14.6 g/dL (13.3-17.7); LYMPHOCYTES # (AUTO) 2.3 10^3/uL (1.0-4.0); LYMPHOCYTES % (AUTO) 25 % (12-44); MEAN CORPUSCULAR HEMOGLOBIN 29 pg (25-34); MEAN CORPUSCULAR HGB CONC 34 g/dL (32-36); MEAN CORPUSCULAR VOLUME 86 fL (80-99); MEAN PLATELET VOLUME 11.2 fL (9.0-12.2); MONOCYTES # (AUTO) 0.9 10^3/uL (0.0-1.0); MONOCYTES % (AUTO) 10 % (0-12); NEUTROPHILS # (AUTO) 5.8 10^3/uL (1.8-7.8); NEUTROPHILS % (AUTO) 62 % (42-75); PLATELET COUNT 293 10^3/uL (130-400); WHITE BLOOD COUNT 9.3 10^3/uL (4.3-11.0)
[2022-02-21 17:58] LABS: ALANINE AMINOTRANSFERASE 41 U/L (0-55); ALBUMIN 4.6 GM/DL (3.2-4.5); ALKALINE PHOSPHATASE 81 U/L (40-136); BILIRUBIN,TOTAL 0.8 MG/DL (0.1-1.0); BUN/CREATININE RATIO 15; CALCIUM 9.3 MG/DL (8.5-10.1); CARBON DIOXIDE 27 MMOL/L (21-32); CHLORIDE 103 MMOL/L (98-107); CREATININE SERUM 1.02 MG/DL (0.60-1.30); GFR ESTIMATED 80; GLUCOSE 96 MG/DL (70-105); POTASSIUM 4.1 MMOL/L (3.6-5.0); SODIUM 139 MMOL/L (135-145); TOTAL PROTEIN 7.1 GM/DL (6.4-8.2)
[2022-02-21 21:33] LABS: ATYPICAL LYMPHOCYTES 12 %; BAND NEUTROPHILS 12 %; BASOPHILS % (MANUAL) 2 %; EOSINOPHILS % (MANUAL) 1 %; LYMPHOCYTES % (MANUAL) 15 %; MONOCYTES % (MANUAL) 8 %; NEUTROPHILS % (MANUAL) 50 %
[2022-02-21 21:34] LABS: MICROCYTOSIS SLIGHT; PLATELET ESTIMATE NORMAL
== END ==
LOC: LAB FS 15:27
PROVIDERS: ATTEND Internal Medicine Hematology & Oncology
DX: D72.829 Elevated white blood cell count, unspecified (principal)
CPT/HCPCS: 36415; 80053; 85007; 85027

== ENCOUNTER → 2022-03-19 | Outpatient (CLI) | payer MEDICARE, BC ==
[2022-03-19 16:09] LABS: ALANINE AMINOTRANSFERASE 47 U/L (0-55); ALKALINE PHOSPHATASE 60 U/L (40-136); BILIRUBIN,TOTAL 0.7 MG/DL (0.1-1.0); BUN/CREATININE RATIO 13; CARBON DIOXIDE 23 MMOL/L (21-32); CHLORIDE 106 MMOL/L (98-107); CREATININE SERUM 1.21 MG/DL (0.60-1.30); GFR ESTIMATED 65; GLUCOSE 108 MG/DL (70-105); POTASSIUM 4.2 MMOL/L (3.6-5.0); SODIUM 140 MMOL/L (135-145); TOTAL PROTEIN 6.9 GM/DL (6.4-8.2)
[2022-03-19 16:10] LABS: ALBUMIN 4.7 GM/DL (3.2-4.5)
== END ==
LOC: LAB FS 15:23
PROVIDERS: ATTEND Internal Medicine
DX: E83.51 Hypocalcemia (principal)
CPT/HCPCS: 36415; 80053

== ENCOUNTER → 2022-04-04 | Outpatient (CLI) | payer MEDICARE, BC ==
[2022-04-04 22:10] LABS: FREE T4 (FREE THYROXINE) 1.4 NG/DL (0.70-1.48)
== END ==
LOC: LAB FS 14:31
PROVIDERS: ATTEND Internal Medicine
DX: C73 Malignant neoplasm of thyroid gland (principal); E89.0 Postprocedural hypothyroidism
CPT/HCPCS: 36415; 84432; 84439; 84443; 86800

== ENCOUNTER → 2022-04-04 | Outpatient (CLI) | payer MEDICARE, BC ==
[2022-04-04 15:47] LABS: BASOPHILS % (AUTO) 1 % (0-10); EOSINOPHILS # (AUTO) 0.1 10^3/uL (0.0-0.3); EOSINOPHILS % (AUTO) 2 % (0-10); HEMATOCRIT 40 % (40-54); HEMOGLOBIN 13.5 g/dL (13.3-17.7); LYMPHOCYTES % (AUTO) 19 % (12-44); MEAN CORPUSCULAR HEMOGLOBIN 29 pg (25-34); MEAN CORPUSCULAR HGB CONC 34 g/dL (32-36); MEAN CORPUSCULAR VOLUME 86 fL (80-99); MEAN PLATELET VOLUME 10.9 fL (9.0-12.2); MONOCYTES # (AUTO) 0.4 10^3/uL (0.0-1.0); MONOCYTES % (AUTO) 7 % (0-12); NEUTROPHILS # (AUTO) 3.7 10^3/uL (1.8-7.8); NEUTROPHILS % (AUTO) 71 % (42-75); PLATELET COUNT 183 10^3/uL (130-400); WHITE BLOOD COUNT 5.3 10^3/uL (4.3-11.0)
[2022-04-04 15:52] LABS: ALBUMIN 4.2 GM/DL (3.2-4.5); BILIRUBIN,TOTAL 0.5 MG/DL (0.1-1.0); CALCIUM 9.2 MG/DL (8.5-10.1); CREATININE SERUM 0.98 MG/DL (0.60-1.30); POTASSIUM 3.9 MMOL/L (3.6-5.0); TOTAL PROTEIN 6.8 GM/DL (6.4-8.2)
[2022-04-04 16:15] LABS: BAND NEUTROPHILS 3 %; BASOPHILS % (MANUAL) 1 %; EOSINOPHILS % (MANUAL) 2 %; LYMPHOCYTES % (MANUAL) 23 %; MONOCYTES % (MANUAL) 3 %; NEUTROPHILS % (MANUAL) 68 %
== END ==
LOC: LAB FS 14:37
PROVIDERS: ATTEND Internal Medicine Hematology & Oncology
DX: D72.829 Elevated white blood cell count, unspecified (principal)
CPT/HCPCS: 36415; 80053; 85007; 85027